=== PATIENT | female | born 1975 | race Caucasian/White ===

== ENCOUNTER → 2017-09-13 | Outpatient (CLI) | payer BC ==
--- NOTE | 2017-09-13 12:15 | MM ---
Reason for exam: screening (asymptomatic). Baseline mammogram. History: Family history of breast cancer in paternal cousin at age 38. Took hormonal contraceptives beginning at age 23. Physical Findings: Nurse did not find any significant physical abnormalities on exam. MG Screening Mammo w CAD Bilateral CC and MLO view(s) were taken. XCCL view(s) were taken of the right breast. There are scattered fibroglandular densities. Focal asymmetry upper outer left breast 4.5cm from nipple. These results were verbally communicated with the patient and result sheet given to the patient on 09/13/17. ASSESSMENT: Incomplete: need additional imaging evaluation, BI-RAD 0 RECOMMENDATION: Special view mammogram of the left breast. If lesion persists on supplemental views, image directed ultrasound is recommended. [facility] will attempt to contact patient to return for supplemental views and ultrasound if indicated.
--- NOTE | 2017-09-13 12:17 | MM ---
Reason for exam: additional evaluation requested from abnormal screening. History: Family history of breast cancer in paternal cousin at age 38. Took hormonal contraceptives beginning at age 23. Physical Findings: Breast exam preformed at baseline screening. MG Work Up Mamm w CAD LT Spot compression CC, spot compression MLO, and ML view(s) were taken of the left breast. Vague density, upper outer quadrant ultrasound is recommended. These results were verbally communicated with the patient and result sheet given to the patient on 09/13/17. ASSESSMENT: Incomplete: need additional imaging evaluation, BI-RAD 0 RECOMMENDATION: Ultrasound of the left breast.
--- NOTE | 2017-09-13 12:18 | USB ---
Reason for exam: additional evaluation requested from abnormal screening. History: Family history of breast cancer in paternal cousin at age 38. Took hormonal contraceptives beginning at age 23. US Breast Workup Limited LT Left breast ultrasound demonstrates a 0.3 x 0.3 x 0.2cm oval, cystic lesion at 3 o'clock. These results were verbally communicated with the patient and result sheet given to the patient on 09/13/17. ASSESSMENT: Benign, BI-RAD 2 RECOMMENDATION: Return to routine screening mammogram schedule for both breasts.
== END | disposition home or self-care (01) ==
LOC: RADMAMWWP 10:05
PROVIDERS: ATTEND Family Medicine
DX: Z12.31 Encounter for screening mammogram for malignant neoplasm of breast (principal); R92.8 Other abnormal and inconclusive findings on diagnostic imaging of breast
CPT/HCPCS: 77065; 77067

== ENCOUNTER → 2020-08-05 | Outpatient (CLI) | payer BC ==
--- NOTE | 2020-08-06 10:45 | MM ---
Reason for exam: screening (asymptomatic). Last mammogram was performed 2 years and 11 months ago. History: Family history of breast cancer in paternal cousin at age 38. Took hormonal contraceptives beginning at age 23. Physical Findings: A clinical breast exam by your physician is recommended on an annual basis and results should be correlated with mammographic findings. MG Screening Mammo w CAD Bilateral CC and MLO view(s) were taken. Prior study comparison: September 13, 2017, left breast MG work up mamm w CAD LT. September 13, 2017, bilateral MG screening mammo w CAD. The breast tissue is heterogeneously dense. This may lower the sensitivity of mammography. Finding: There is a mass in the posterior, central, middle position. Focal asymmetry right middle posterior outer aspect. ASSESSMENT: Incomplete: need additional imaging evaluation, BI-RAD 0 RECOMMENDATION: Special view mammogram and ultrasound of the right breast. [facility] will attempt to contact patient to return for supplemental views and ultrasound.
== END ==
LOC: RADMAMWWP 15:30
PROVIDERS: ATTEND Obstetrics & Gynecology
DX: Z12.31 Encounter for screening mammogram for malignant neoplasm of breast (principal); Z80.3 Family history of malignant neoplasm of breast
CPT/HCPCS: 77067

== ENCOUNTER → 2020-08-26 | Outpatient (CLI) | payer BC ==
--- NOTE | 2020-08-26 13:35 | MM ---
Reason for exam: additional evaluation requested from abnormal screening. Last mammogram was performed 1 month ago. History: Family history of breast cancer in paternal cousin at age 38. Took hormonal contraceptives beginning at age 23. Physical Findings: Nurse did not find any significant physical abnormalities on exam. MG 3D Work Up W/Cad RT Spot compression CC, spot compression MLO, and LM view(s) were taken of the right breast. Prior study comparison: August 05, 2020, bilateral MG screening mammo w CAD. September 13, 2017, left breast MG work up mamm w CAD LT. The breast tissue is heterogeneously dense. This may lower the sensitivity of mammography. There is chronic nodularity in the right breast. There is no discrete abnormality. These results were verbally communicated with the patient and result sheet given to the patient on 08/26/20. ASSESSMENT: Benign, BI-RAD 2 RECOMMENDATION: Return to routine screening mammogram schedule for both breasts.
--- NOTE | 2020-08-26 13:37 | USB ---
Reason for exam: additional evaluation requested from abnormal screening. History: Family history of breast cancer in paternal cousin at age 38. Took hormonal contraceptives beginning at age 23. US Breast Workup Limited RT Right limited breast ultrasound including focal area of concern, retroareolar and axilla demonstrates a 0.4 x 0.3 x 0.6cm oval, cystic lesion at 8 o'clock and a 0.4 x 0.3 x 0.4cm oval, cystic lesion at 8 'clock. These results were verbally communicated with the patient and result sheet given to the patient on 08/26/20. ASSESSMENT: Benign, BI-RAD 2 RECOMMENDATION: Return to routine screening mammogram schedule for both breasts.
== END | disposition home or self-care (01) ==
LOC: RADMAMWWP 10:21
PROVIDERS: ATTEND Obstetrics & Gynecology
DX: R92.8 Other abnormal and inconclusive findings on diagnostic imaging of breast (principal)
CPT/HCPCS: 77061; 77065

== ENCOUNTER → 2023-06-14 | Outpatient (CLI) | payer OTHER ==
--- NOTE | 2023-06-15 09:51 | MM ---
Reason for Exam: Screening (asymptomatic). Last mammogram was performed 2 year(s) and 10 month(s) ago. Patient History: Menarche at age 13. First Full-Term at age 23. Currently using Hormonal Contraceptives, starting at age 23. Paternal cousin had breast cancer, age 38. Maternal grandmother had breast cancer at or over age 50. Risk Values: Karen 5 year model risk: 0.8%. NCI Lifetime model risk: 8.5%. Prior Study Comparison: 09/13/2017 Bilateral Screening Mammogram, [facility]. 09/13/2017 Left Diagnostic Mammogram, [facility]. 08/05/2020 Bilateral Screening Mammogram, [facility]. 08/26/2020 Right Diagnostic Mammogram, [facility]. Tissue Density: There are scattered fibroglandular densities. Findings: Analyzed By CAD. Asymmetry left breast 10.0 cm on MLO view lateral on cc view measuring up to 9 mm. Right breast: There is no suspicious group of microcalcifications or new suspicious mass. Overall Assessment: Incomplete: need additional imaging evaluation, BI-RAD 0 Management: Diagnostic Mammogram of the left breast. Diagnostic Breast Ultrasound of the left breast. [facility] will attempt to contact patient to return for supplemental views and ultrasound if indicated. Patient should continue monthly self-breast exams. A clinical breast exam by your physician is recommended on an annual basis. This exam should not preclude additional follow-up of suspicious palpable abnormalities. Note on Karen scores and lifetime risk: 1. A Karen score greater than 3% is considered moderate risk. If this is the case, consider specialist referral to assess eligibility for a risk reducing agent. 2. If overall lifetime risk for the development of breast cancer is 20% or higher, the patient may qualify for future screening with alternating mammogram and breast MRI. Electronically signed and approved by: Ja Carrero DO
== END | disposition home or self-care (01) ==
LOC: RADMAMWWP 10:34
PROVIDERS: ATTEND Obstetrics & Gynecology
DX: Z12.31 Encounter for screening mammogram for malignant neoplasm of breast (principal); Z78.0 Asymptomatic menopausal state; Z80.3 Family history of malignant neoplasm of breast
CPT/HCPCS: 77063; 77067

== ENCOUNTER → 2023-06-21 | Outpatient (CLI) | payer OTHER ==
--- NOTE | 2023-06-21 14:19 | USB ---
Reason for Exam: Additional evaluation requested from abnormal screening. Patient History: Menarche at age 13. First Full-Term at age 23. Currently using Hormonal Contraceptives, starting at age 23. Paternal cousin had breast cancer, age 38. Maternal grandmother had breast cancer at or over age 50. Risk Values: Karen 5 year model risk: 0.8%. NCI Lifetime model risk: 8.5%. Prior Study Comparison: 08/05/2020 Bilateral Screening Mammogram, [facility]. 08/26/2020 Right Diagnostic Mammogram, [facility]. 08/26/2020 Right Diagnostic Ultrasound, [facility]. 06/14/2023 Bilateral MG 3D screening mammo w/cad, [facility]. Findings: The upper outer quadrant of the left breast, the axilla of the left breast and the retroareolar of the left breast were scanned. Clusters of cysts are noted compatible with the mammographic findings at the left 2:00 position measuring 0.8 x 0.4 cm as well as at the 1:00 position measuring 3 mm. No solid masses seen.. Overall Assessment: Benign, BI-RAD 2 Management: Screening Mammogram of both breasts in 1 year. A clinical breast exam by your physician is recommended on an annual basis and results should be correlated with mammographic findings. This exam should not preclude additional follow-up of suspicious palpable abnormalities. Results were given to the patient verbally at the time of exam. Electronically signed and approved by: Tj Corbin M.D. Radiologis
--- NOTE | 2023-06-22 11:11 | MM ---
Reason for Exam: Additional evaluation requested from abnormal screening. Last screening mammogram was performed less than 1 month ago. Patient History: Menarche at age 13. First Full-Term at age 23. Currently using Hormonal Contraceptives, starting at age 23. Paternal cousin had breast cancer, age 38. Maternal grandmother had breast cancer at or over age 50. Last menstrual period: 06/15/2023 Risk Values: Karen 5 year model risk: 0.8%. NCI Lifetime model risk: 8.5%. Prior Study Comparison: 09/13/2017 Bilateral Screening Mammogram, [facility]. 09/13/2017 Left Diagnostic Mammogram, [facility]. 08/05/2020 Bilateral Screening Mammogram, [facility]. 08/26/2020 Right Diagnostic Mammogram, [facility]. 06/14/2023 Bilateral MG 3D screening mammo w/cad, [facility]. Tissue Density: Left: The breast tissue is heterogeneously dense. This may lower the sensitivity of mammography. Findings: Analyzed By CAD. Multiple nodular densities are seen upper outer quadrant left approximately 11.5 cm in depth. Ultrasound is recommended. Overall Assessment: Incomplete: need additional imaging evaluation, BI-RAD 0 Management: Diagnostic Breast Ultrasound of the left breast. . Results were given to the patient verbally at the time of exam. Patient should continue monthly self-breast exams. A clinical breast exam by your physician is recommended on an annual basis. This exam should not preclude additional follow-up of suspicious palpable abnormalities. Note on Karen scores and lifetime risk: 1. A Karen score greater than 3% is considered moderate risk. If this is the case, consider specialist referral to assess eligibility for a risk reducing agent. 2. If overall lifetime risk for the development of breast cancer is 20% or higher, the patient may qualify for future screening with alternating mammogram and breast MRI. Electronically signed and approved by: Tj Corbin M.D. Radiologis
== END | disposition home or self-care (01) ==
LOC: RADMAMWWP 13:07
PROVIDERS: ATTEND Obstetrics & Gynecology
DX: R92.8 Other abnormal and inconclusive findings on diagnostic imaging of breast (principal); Z80.3 Family history of malignant neoplasm of breast
CPT/HCPCS: 77061; 77065

== ENCOUNTER → 2024-03-13 | Outpatient (CLI) | payer OTHER ==
--- NOTE | 2024-03-13 18:43 | CT ---
EXAMINATION TYPE: CT abdomen w con CT DLP: 526.90 mGycm, Automated exposure control for dose reduction was used. DATE OF EXAM: 03/13/2024 9:58 AM COMPARISON: None CLINICAL INDICATION: Female, 48 years old with history of M06.30 RHEUMATOID NODULE, UNSPECIFIED SITE; Rheumatoid nodule, liver nodule TECHNIQUE: Axial CT abdomen w con;Sagittal and coronal reformats were created on a separate workstat ion. Contrast used:100 mL of Isovue 300 with IV Contrast, (none if empty) Oral contrast used: with Oral Contrast (none if empty) FINDINGS: LOWER CHEST: Unremarkable ABDOMEN LIVER: There is a heterogenous appearance of the right hepatic lobe most pronounced posteriorly with cysts technique areas suggested. Additionally there is a hyperdense lesion possibly enhancing lesion which becomes isointense to background parenchyma on delayed imaging measuring up to 17 mm. GALLBLADDER AND BILE DUCTS: Layering increased densities within the lumen consistent with gallstones are present. PANCREAS: Unremarkable. SPLEEN: Unremarkable. ADRENAL GLANDS: Unremarkable. KIDNEYS AND URETERS: Bilateral nonobstructing renal calculi measuring up to 3 mm bilaterally. No evid ence for hydronephrosis. STOMACH AND BOWEL: No evidence of bowel obstruction. PERITONEUM/RETROPERITONEUM: No evidence of pneumoperitoneum or free fluid. VASCULATURE: No evidence of aortic aneurysm. MUSCULOSKELETAL: No acute osseous abnormalities LYMPH NODES: No gross evidence for lymphadenopathy. SOFT TISSUE/ABDOMINAL WALL: Small fat-containing umbilical hernia. IMPRESSION: 1. Heterogenous appearance of the liver parenchyma right hepatic lobe posteriorly with suspected enh ancing lesion in the right inferior hepatic lobe measuring up to 17 mm. Additional cystic change and/ or dilated ducts are present in the posterior right hepatic lobe. Further evaluation MRI liver mass p rotocol recommended for the findings. 2. Bilateral nonobstructing renal calculi. 3. Cholelithiasis. 4. No evidence for acute abdominal process. [facility], , 03/13/2024 6:40 PM
== END | disposition home or self-care (01) ==
LOC: RADCTMAIN 08:52
PROVIDERS: ATTEND Surgery
CPT/HCPCS: 74160

== ENCOUNTER 2024-03-26 06:10 | Day surgery (SDC) | payer OTHER ==
[2024-03-26] MEDS: IV FLUID CONTINUATION 1,000 ML IV ONE ×3 (07:03→09:27)
[2024-03-26] MEDS ORDERED: HYDROmorphone 0.5 MG/0.5 ML SYRINGE IVP PRN (07:09)
[2024-03-26] MEDS: LACTATED RINGERS 1,000 ML IV SCH (07:20)
[2024-03-26] MEDS: ONDANSETRON 4 MG/2 ML VIAL IVP ONE (07:20)
[2024-03-26] MEDS: DEXAMETHASONE SOD PHOSPHATE 4 MG/ML 1 ML VIAL IV ONE (07:20)
[2024-03-26] MEDS: ACETAMINOPHEN TAB 500 MG TAB PO PRN (07:21)
[2024-03-26] MEDS: HEPARIN SODIUM,PORCINE 5,000 UNIT/ML 1 ML VIAL SQ PRN (07:21)
[2024-03-26] MEDS: LIDOCAINE 1%-EPI 1:100,000 20 ML VIAL SQ ONE (07:31)
[2024-03-26 07:33] LABS: Basophils # (A) 0.1 k/uL (0-0.2); Basophils % (A) 1 %; Eosinophils # (A) 0.4 k/uL (0-0.7); Eosinophils % (A) 5 %; HCT 43.6 % (34.0-46.0); HGB 14.3 gm/dL (11.4-16.0); Lymphocytes # (A) 1.3 k/uL (1.0-4.8); Lymphocytes % (A) 16 %; MCH 28.8 pg (25.0-35.0); MCHC 32.8 g/dL (31.0-37.0); MCV 87.7 fL (80.0-100.0); Mean Platelet Volume 6.3; Monocytes # (A) 0.3 k/uL (0-1.0); Monocytes % (A) 4 %; Neutrophils # (A) 5.6 k/uL (1.3-7.7); Neutrophils % (A) 71 %; Platelet Count 389 k/uL (150-450); RBC 4.97 m/uL (3.80-5.40); RDW 13.4 % (11.5-15.5); WBC 7.9 k/uL (3.8-10.6)
[2024-03-26] MEDS ORDERED: ePHEDrine 50 MG/ML 1 ML VIAL ONE (07:43)
[2024-03-26] MEDS ORDERED: PHENYLEPHRINE 10 MG/ML VIAL ONE (07:43)
[2024-03-26] MEDS ORDERED: PROPOFOL 10 MG/ML 20 ML VIAL IV ONE (07:43)
[2024-03-26] MEDS ORDERED: SUCCINYLCHOLINE CHLORIDE 200 MG/10 ML VIAL IV ONE (07:43)
[2024-03-26] MEDS ORDERED: fentaNYL (PF) 50 MCG/ML 2 ML AMP ONE (07:43)
[2024-03-26] MEDS ORDERED: NEOSTIGMINE 1 MG/ML 10 ML VIAL ONE (07:43)
[2024-03-26] MEDS ORDERED: MIDAZOLAM 2 MG/2 ML VIAL ONE (07:43)
[2024-03-26] MEDS ORDERED: KETOROLAC 15 MG/ML 1 ML VIAL ONE (07:43)
[2024-03-26] MEDS ORDERED: GLYCOPYRROLATE 0.2 MG/ML 2 ML VIAL ONE (07:43)
[2024-03-26] MEDS ORDERED: LIDOCAINE 1% INJ 10MG/ML (20 ML MDV) ONE (07:43)
[2024-03-26] MEDS ORDERED: ROCURONIUM 10 MG/ML (5 ML VIAL) IV ONE (07:43)
--- NOTE | 2024-03-26 08:49 | P.OP ---
Date of Procedure: 03/26/24 Preoperative Diagnosis: Cholelithiasis Postoperative Diagnosis: Cholelithiasis Fatty infiltration of liver biopsy pending Procedure(s) Performed: Laparoscopic cholecystectomy Liver biopsy Anesthesia: EMANUEL Surgeon: Pablo Trujillo Estimated Blood Loss (ml): 5 Pathology: other (Gallbladder, liver biopsy) Condition: stable Disposition: PACU Description of Procedure: The patient's placed on the operative table in the supine position. The patient received general endotracheal anesthesia. His abdomen was prepped with sterile fashion. An infraumbilical skin incision was made. The Veress needles positioned into the peritoneal cavity. Position of the Veress needle was confirmed with a positive drop test. The abdomen was then insufflated. After adequate insufflation a 5 mm trochars placed. Cavity. Next the laparoscope placed. Cavity. A 8 mm robotic trocar was placed in the left mid abdomen. A a 8 mm robotic trochars placed in the right lateral position and then the right mid abdomen position. The patient was then placed in reverse Trendelenburg. Patient with was docked to the robot. There were adhesions to the dome of the gallbladder. These were lysed using the hook cautery. The gallbladder fundus was then grasped with a pro-grasp grasper. And then the gallbladder was retracted cephalad. There were adhesions along the body of the gallbladder. These were lysed with sharp dissection. The fundus of the gallbladder was then grasped in the lateral traction was placed in the fundus. And then using blunt and sharp dissection the cystic duct was identified. Using firing applied the cystic duct was identified. A critical view of safety was achieved. The cystic duct was seen entering the common bile duct the common hepatic duct was seen. The cystic duct had been completely dissected and then the cystic duct was clipped and divided. The cystic artery was then identified and then clipped and divided. The gallbladder was then removed from liver bed using left cautery. The gallbladder was placed in a 5 mm Endo Catch bag. The liver bed was hemostasis. There is no bleeding seen. The abdomen was irrigated. No bleeding was seen. The patient was then undocked from the robot. The gallbladder was extracted through the umbilical port site. The liver appeared to have some evidence of scarring. Due to this a liver biopsy was performed. The edge of the liver was grasped with a toothed forcep. Then using robotic scissors the liver biopsy was performed. The specimen sent to pathology. There is no bleeding seen. The umbilical port site was then closed with 0 Ethibond suture. The trochars withdrawn. Skin was closed interrupted 3-0 Monocryl suture. Dermabond dressing applied. Patient top she will was sent to recovery room in stable condition.
[2024-03-26 08:50] VITALS: TEMP 97.5
[2024-03-26 10:02] VITALS: RESP 20
[2024-03-26 10:19] VITALS: BP 112/76; PULSE 60
== END 2024-03-26 10:24 | disposition home or self-care (01) ==
LOC: OR 06:10
PROVIDERS: ATTEND Surgery
DX: K80.10 Calculus of gallbladder with chronic cholecystitis without obstruction (principal); K76.0 Fatty (change of) liver, not elsewhere classified; K21.9 Gastro-esophageal reflux disease without esophagitis; Z79.899 Other long term (current) drug therapy
CPT/HCPCS: 47379; 47562; S2900; 81025; 85025; 88304; 88307; 88313

== ENCOUNTER 2024-12-18 08:45 | Day surgery (SDC) | payer OTHER ==
[2024-12-12 09:58] VITALS: BMI 28.1
[2024-12-18] MEDS: LACTATED RINGERS 1,000 ML IV SCH (09:21)
[2024-12-18] MEDS: IV FLUID CONTINUATION 1,000 ML IV ONE ×2 (09:21→09:40)
[2024-12-18 09:25] VITALS: TEMP 97.8
--- NOTE | 2024-12-18 09:45 | P.GSHP ---
History of Present Illness H&P Date: 12/18/24 Chief Complaint: Colon cancer screening 49-year-old female here for colonoscopy. She has not had 1 previously. No bowel complaints. Brother recently diagnosed with colon cancer. Past Medical History Additional Past Medical History / Comment(s): nodules on liver, seeing kidney dr in may 2024, some labs were abnormal, History of Any Multi-Drug Resistant Organisms: None Reported Past Surgical History: Cholecystectomy Past Anesthesia/Blood Transfusion Reactions: No Reported Reaction Additional Past Anesthesia/Blood Transfusion Reaction / Comment(s): no blood tx hx, never had general anesthesia Smoking Status: Never smoker - Past Family History Father Family Medical History: Cancer Mother Family Medical History: Cancer Additional Family Medical History / Comment(s): thyroid Brother(s) Family Medical History: Cancer Additional Family Medical History / Comment(s): COLON Medications and Allergies Home Medications Medication Instructions Recorded Confirmed Type norgestrel-ethinyl estradioL 1 tab PO HS 03/22/24 12/12/24 History [[id number]-[id number] Tablet] Fluticasone Nasal [place] [Flonase 2 spray EA NOSTRIL DAILY 12/18/24 12/18/24 History Nasal [place]] Allergies Allergy/AdvReac Type Severity Reaction Status Date / Time No Known Allergies Allergy Verified 12/18/24 09:20 Surgical - Exam Vital Signs Temp Pulse Resp BP Pulse Ox 97.8 F 63 16 129/84 99 12/18/24 09:23 12/18/24 09:23 12/18/24 09:23 12/18/24 09:23 12/18/24 09:23 Physical exam: General: Well-developed, well-nourished HEENT: Normocephalic, sclerae nonicteric Abdomen: Nontender, nondistended Extremities: No edema Neuro: Alert and oriented Assessment and Plan (1) Colon cancer screening Narrative/Plan: Will proceed with colonoscopy at this time. Current Visit: Yes Status: Acute Code(s): Z12.11 - ENCOUNTER FOR SCREENING FOR MALIGNANT NEOPLASM OF COLON SNOMED Code(s): 790972055
[2024-12-18] MEDS ORDERED: PROPOFOL 10 MG/ML 20 ML VIAL IV ONE (09:49)
[2024-12-18] MEDS ORDERED: LIDOCAINE 1% INJ 10MG/ML (20 ML MDV) ONE (09:49)
--- NOTE | 2024-12-18 10:07 | P.PCN ---
Date of Procedure: 12/18/24 Procedure(s) Performed: PREOPERATIVE DIAGNOSIS: Screening with family history of colon cancer POSTOPERATIVE DIAGNOSIS: Ascending colon polyp PROCEDURE: Colonoscopy with snare polypectomy and clip placement ANESTHESIA: MAC SURGEON: Dave Panda M.D. SPECIMENS: Ascending colon polyp ENDOSCOPIC PROCEDURE: The patient was placed on the endoscopy table in the left decubitus position. The Olympus colonoscope was inserted into the anus and passed under direct visualization to the base of the cecum. The appendiceal orifice was visualized. From that point the scope was slowly withdrawn inspecting all surfaces carefully. There were no neoplastic inflammatory or polypoid lesions throughout the cecum. In the ascending colon there was a 1 cm polyp removed as a single piece using the snare with cautery technique. A clip was deployed at the polypectomy site to prevent postoperative complications. No further abnormalities were noted through the ascending transverse descending sigmoid or rectum. There was no visible diverticulosis. Digital rectal examination was normal. The patient was taken to the recovery room in stable condition per anesthesia guidelines. RECOMMENDATIONS: Await biopsy results. Will contact patient with timing for next colonoscopy but anticipate 3 to 5 years.
[2024-12-18 10:10] VITALS: RESP 14
[2024-12-18 10:31] VITALS: BP 111/77; PULSE 60
== END 2024-12-18 10:43 | disposition home or self-care (01) ==
LOC: ORWHC2ENDO 08:45
PROVIDERS: ATTEND Surgery
DX: Z12.11 Encounter for screening for malignant neoplasm of colon (principal); D12.2 Benign neoplasm of ascending colon; Z90.49 Acquired absence of other specified parts of digestive tract; Z80.0 Family history of malignant neoplasm of digestive organs
CPT/HCPCS: 81025; 45385; J2003; J2704; 88305